=== PATIENT | male | born 1955 | race Caucasian/White ===

== ENCOUNTER 2021-04-03 01:24 | Emergency (ER) | payer OTHER ==
[2021-04-03 04:15] LABS: BASOPHIL 0.1 % (0-2); EOSINOPHIL 0 % (0-7); HCT 48.8 % (42.0-52.0); HGB 16.9 g/dl (13.2-18.0); LYMPHOCYTE 14.1 % (15-48); MCHC 34.6 g/dL (32.0-36.0); MCV 89.4 fL (78.0-100.0); MONOCYTE 6.2 % (0-12); MPV 10.8 fL (6.0-9.5); NEUTROPHIL 79.3 % (41-80); NRBC 0; PLT 270 K/uL (150-400); RBC 5.46 M/uL (4.70-6.00); RDW 12.1 % (11.5-14.0); WBC 10.9 K/uL (4.0-10.5)
[2021-04-03 04:25] LABS: BUN/CREAT RATIO (CALC) 15.2 RATIO; CREATININE 0.99 mg/dL (0.67-1.17); POTASSIUM 4.5 mmol/L (3.5-5.1)
[2021-04-03 04:28] LABS: BILIRUBIN NEGATIVE (NEGATIVE); BLOOD NEGATIVE Ery/uL (NEGATIVE); CLARITY CLEAR (CLEAR); COLOR YELLOW (YELLOW); GLUCOSE (U) 2+ mg/dL (NORMAL); LEUKOCYTES NEGATIVE Leu/uL (NEGATIVE); NITRITE NEGATIVE (NEGATIVE); PROTEIN NEGATIVE (NEGATIVE); UROBILINOGEN 0.2 mg/dL (0.2-1.0)
[2021-04-03] MEDS ORDERED: FLOMAX 0.4 MG0.4 MG PO (06:57)
[2021-04-03] MEDS ORDERED: NORCO 5-325 TA1 EACH PO (06:57)
[2021-04-03] MEDS ORDERED: SENOKOT8.6 MG PO (06:57)
[2021-04-03] MEDS ORDERED: MIRALAX 238GM238 GM PO (06:57)
[2021-04-03] MEDS ORDERED: BENTYL10 MG PO (06:59)
[2021-04-03] MEDS ORDERED: ONDANSETRON ODT4 MG SL (06:59)
== END 2021-04-03 07:38 | disposition home or self-care (01) ==
LOC: FER 01:24
PROVIDERS: Emergency Medicine Emergency Medical Services
DX: R10.32 Left lower quadrant pain (principal); I10 Essential (primary) hypertension; Z79.899 Other long term (current) drug therapy
CPT/HCPCS: 36415; 80048; 81003; 84550; 85025; J1885; J2405; J7030